=== PATIENT | female | born 1960 | race Caucasian/White ===

== ENCOUNTER 2024-01-06 16:20 | Emergency (ER) | payer OTHER, MEDICARE, SELFPAY ==
[2024-01-06 16:24] VITALS: BP 124/75
[2024-01-06 21:10] VITALS: BMI 27.3
[2024-01-06 21:24] VITALS: BP 158/73
[2024-01-06] MEDS: NSS 500 IV (21:26)
[2024-01-06 21:30] LABS: % Basophils 1.2 % (0-2); % Eosinophils 3.2 % (0-6); % Immature Granulocytes 0.2 % (0-0.5); % Lymphocytes 24.5 % (20.5-51.1); % Monocytes 14.4 % (1.7-9.3); % Neutrophils 56.5 % (42.2-75.2); Absolute Basophils 0.1 10^3/uL (0-0.2); Absolute Eosinophils 0.1 10^3/uL (0-0.7); Absolute Lymphocytes 1.1 10^3/uL (1.2-3.4); Absolute Monocytes 0.6 10^3/uL (0.1-0.6); Absolute Neutrophils 2.4 10^3/uL (1.4-6.5); Hematocrit 28.7 % (37.0-47.0); Hemoglobin 9.9 g/dL (12.0-16.0); Mean Corp Hgb Conc. 34.5 g/dL (33.0-37.0); Mean Corpuscular Hgb 31.7 pg (27.0-31.0); Mean Platelet Volume 9.1 fL (7.4-10.4); Nucleated Red Blood Cells % 0 %; Platelet Count 159 10^3/uL (130-400); Red Blood Cell Count 3.12 10^6/uL (4.20-5.40); Red Cell Dist. Width 12.5 % (11.5-14.5); White Blood Cell Count 4.3 10^3/uL (4.8-10.8)
[2024-01-06 21:41] LABS: Blood Urea Nitrogen 13 mg/dl (7-17); Calcium 10.1 mg/dl (8.4-10.2); Carbon Dioxide 23 mmol/L (22-30); Chloride 106 mmol/L (98-107); Estimated Creatinine Clearance 92 ml/min; Glucose 100 mg/dl (70-99); Potassium 3.8 mmol/L (3.5-5.1); Sodium 137 mmol/L (135-145); eGFR > 60.00
[2024-01-06 21:53] LABS: Troponin I < 0.012 ng/ml
[2024-01-06 22:00] VITALS: BP 179/77
--- NOTE | 2024-01-06 22:36 | ED.GENMED ---
History of Present Illness
General
Chief Complaint: Breathing Problem
Source: patient and family
Exam Limitations: none
Time Seen by Provider: 01/06/24 20:02
Travel History
Have you had any contact with someone who has COVID-19?: No
Do you have any symptoms of coronavirus? Fever > 100 degrees, chills, cough, shortness of breath, sore throat, loss of taste or smell, muscle aches, or headache?: No
History of Present Illness
History of Present Illness:
Patient with a trauma about 5 days ago. At that time patient had arm fracture x 2 and a facial fracture. Since shortly after the incident she has had shortness of breath and shortness of breath with exertion. No pleuritic chest pain she had no
chest trauma or abdominal trauma. She has follow-up arranged for her orthopedic and facial injuries.
Past History
Past History
ED Past Medical History: Arrthythmia, HTN and Other (MS, hypertension)
ED Past Surgical History: Cholecystectomy and Gynecological
Social History
Tobacco: Non-smoker
Review of Systems
Review of Systems
All Other Systems: Not applicable
Constitutional: Denies fever
Respiratory: Denies cough
Cardiac: Denies chest pain or syncope
Phy Exam
Physical Exam
Physical Exam:
TRAUMA EXAM:
VITAL SIGNS: Vital signs reviewed, cooperative
DISTRESS: No active disease
EYES: Pupils reactive, no orbital trauma
NOSE: No deformity or epistaxis
FACE AND SCALP: Large areas of ecchymosis to the left face in various stages of healing
NECK: Supple nontender
BACK: Back nontender, pelvis stable to compression
RESPIRATORY: No distress, breath sounds normal, no tender chest wall
CARDIAC: No murmur, pulses equal and strong
ABDOMEN: Soft nontender bowel sounds normal
SKIN: Skin intact no bleeding, color normal
EXTREMITIES: Sling in the left arm. Splint.
NEUROLOGICAL: Alert, oriented, no motor deficits
PSYCH: Mood affect normal
Scores
Heart Failure Risk
Heart Failure Risk Score: Not Applicable
Course
Orders/Labs/Results
Orders:
Orders
01/06/24 16:32
CXR2 [CR Chest - 2 Views ] Urgent
Comment:
Reason For Exam: fall on , sob started yesterday
01/06/24 20:12
Electrocardiogram (*1) Stat
Reason for Study: Other
Other Reason for Exam: chest pain
CT Chest Pe Study Urgent
Comment:
Reason For Exam: Short of breath
EKG- Treatment ONCE
IV Insert/Care/Rem.- Treatment PRN
0.9% Sodium Chloride 500 ml [Nss] 500 ml IV BOLUS
Pulse Ox/cont/shift [RESP] Stat
Quantity: 1
01/06/24 21:11
Complete Blood Count/With Diff Urgent
Comprehensive Metabolic Panel Urgent
Direct Bilirubin Urgent
Troponin I Urgent
01/06/24 23:15
Sling Left-Treatment ONCE
01/06/24 23:37
Add On- LAB Urgent
Tests Added?: lfts
Abnormal Lab Results
01/06/24
21:11
WBC 4.3 L 10^3/uL
(4.8-10.8)
RBC 3.12 L 10^6/uL
(4.20-5.40)
Hgb 9.9 L g/dL
(12.0-16.0)
Hct 28.7 L %
(37.0-47.0)
MCH 31.7 H pg
(27.0-31.0)
Absolute Lymphs (auto) 1.1 L 10^3/uL
(1.2-3.4)
Monocytes % 14.4 H %
(1.7-9.3)
Glucose 100 H mg/dl
(70-99)
Direct Bilirubin 0.5 H mg/dl
(0.0-0.4)
AST 46 H U/L
(14-36)
01/06/24 21:11
01/06/24 21:11
Vital Signs
Initial and Last Documented VS:
Initial Vital Signs
Temp Pulse Resp BP Pulse Ox
98.2 F 72 16 124/75 98
01/06/24 16:24 01/06/24 16:24 01/06/24 16:24 01/06/24 16:24 01/06/24 16:24
Last Documented Vital Signs
Temp Pulse Resp BP Pulse Ox
98.2 F 94 16 179/77 100
01/06/24 16:24 01/06/24 22:46 01/06/24 22:30 01/06/24 22:00 01/06/24 23:07
*Radiology
Radiology exam reviewed: radiology read reviewed (neg cxr)
*Pulse Oximetry
Patient hypoxic: no
*EKG
Interpreted by ED Provider?: Yes
Interpretation: abnormal
Comparison EKG: changes noted
Heart Rate: 67
Rate: normal
Rhythm: sinus
[place]: normal axis
Interval: normal interval
QRS Pattern: normal QRS
Ischemia: non-specific ST changes
*Critical Care Note
Total Time (30-74mins, 75-104mins- exclusive of procedures): Not Applicable
Data Reviewed
Review of Other/Old Records Reveals: Labs, Records and Testing
Update Note
Update Note:
Waiting for the official CT reading although I see no serious issues. Doubt a primary cardiac issue. Troponin and EKG are normal. The symptoms all started after her fall. Possibly she caused some chest wall injury that is causing this subjective
dyspnea. However she is not hypoxic she is in no respiratory distress. She does have some mild drop in hemoglobin. However she clearly had some blood loss in her arm and face to explain this. She is not describing black or tarry stools. Stable
for discharge to follow-up
ED Attending Note
-
Portions of this chart may have been created with voice recognition software.� Occasional wrong word or��sound alike� substitutions may have occurred due to the inherent limitations of voice recognition software.
Discharge Plan
Departure
Patient Disposition: Home (Routine Discharge)
Date of Disposition: 01/06/24
Time of Disposition: 23:37
Patient with high blood pressure during this ER visit?: Yes
Discharge Problem:
Dyspnea, Anemia, Recent facial/arm fracture
Instructions: Shortness of Breath (Dyspnea) (DC)
Prescriptions:
No Action
norethindrone-e.estradiol-iron [ (28)] 1 EACH tablet
1 ea PO
amlodipine 5 MG tablet
5 mg PO PRN PRN (Reason: hypertension)
hydrochlorothiazide 12.5 MG capsule
12.5 mg PO DAILY
fluoxetine 10 MG capsule
10 mg PO DAILY
dimethyl fumarate [Tecfidera] 120 MG capsule,delayed release(DR/EC)
240 mg PO BID
Referrals:
Guanakito Rodas DO [Family Provider] - Follow up in 2-3 days
Activity Restrictions/Additional Instructions:
Follow-up closely with your primary physician
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
Follow-up as directed for your arm and facial fractures
Please return sooner with increased shortness of breath, chest pain or any other concerning symptom
Interventions
Interventions:
*Risk Screen - Suicide Last Done: 01/06/24 21:10
*General Assessment Last Done: 01/06/24 21:10
*Neglect/Abuse Screening Last Done: 01/06/24 21:10
ED- Fall Risk Assessment Last Done: 01/06/24 20:15
*ED COVID-19 Vaccine History Last Done: 01/06/24 16:24
*Nursing Disposition Last Done: 01/07/24 00:00
ED- Cardiac Assessment Last Done: 01/06/24 20:15
ED- Pulmonary Assessment Last Done: 01/06/24 20:15
Discharge Date and Time
Discharge Date/Time: 01/07/24 00:00
Print Language: DIVEHI
[2024-01-07 00:15] LABS: ALT (SGPT) 26 U/L (0-35); AST (SGOT) 46 U/L (14-36); Albumin 4.6 g/dl (3.5-5.0); Alkaline Phosphatase 87 U/L (38-126); Direct Bilirubin 0.5 mg/dl (0.0-0.4); Total Bilirubin 1.2 mg/dl (0.2-1.3); Total Protein 7.5 g/dl (6.3-8.2)
== END 2024-01-07 | disposition home or self-care (01) ==
LOC: EMR 16:20
PROVIDERS: EMERGENCY PHYSICIAN Emergency Medicine; FAMILY PHYSICIAN Family Medicine
DX: R06.00 Dyspnea, unspecified (principal); S42.202A Unspecified fracture of upper end of left humerus, initial encounter for closed fracture; W19.XXXA Unspecified fall, initial encounter; D64.9 Anemia, unspecified; I10 Essential (primary) hypertension
CPT/HCPCS: 99285; 96360; 96361; 71046; 71275; 80053; 82248; 84484; 85025; 93005; Q9967

== ENCOUNTER 2024-03-13 12:53 | Emergency (ER) | payer OTHER, MEDICARE, SELFPAY ==
[2024-03-13 13:04] VITALS: BP 153/82
--- NOTE | 2024-03-13 13:34 | ED.GENMED ---
History of Present Illness
General
Chief Complaint: Breathing Problem
Source: patient
Exam Limitations: none
Time Seen by Provider: 03/13/24 13:29
Nursing documentation reviewed up to this point in time: agreed with
History of Present Illness
History of Present Illness:
63-year-old female presents emergency department due to chest pain on the left side of her chest. She has had this pain since falling. She also felt her heart racing. Shortness of breath that started yesterday.
Past History
Past History
ED Past Medical History: Arrthythmia, HTN and Other (MS, hypertension)
ED Past Surgical History: Cholecystectomy and Gynecological
Social History
Tobacco: Non-smoker
Review of Systems
Review of Systems
Allergies reviewed?: Yes
All Other Systems: Not applicable
Constitutional: Reports no symptoms
EENT: Reports no symptoms
Respiratory: Reports trouble breathing
Cardiac: Reports chest pain
ABD/GI: Reports no symptoms
: Reports no symptoms
Musculoskeletal: Reports no symptoms
Skin: Reports no symptoms
Endocrine: Reports no symptoms
Hematologic/Lymphatic: Reports no symptoms
Psychiatric: Reports no symptoms
Phy Exam
Physical Exam
Physical Exam:
Physical Exam
General: no apparent distress, not acutely ill
Neck: supple. no meningeal signs. normal posterior pharynx
Heart: s1/s2 regular rate and rhythm, no murmur. equal radial
pulses.
HEENT: Pupils equal round reactive to light, EOMI
Lungs: no acute respiratory distress. clear bilaterally, chest wall tender to palpation
Abdomen: normal bowel sounds. not tender. no CVAT
Neuro: alert and oriented. no focal neurological deficits cranial nerves II through XII intact
Skin: no rash
Psychiatric: well kept. interactive and cooperative
Extremities: no edema. no calf tenderness. negative homans. good distal pulses
Scores
Heart Failure Risk
Heart Failure Risk Score: Not Applicable
Heart Score for Chest Pain Patients
STEMI patient?: No
History: Slightly or Non-Suspicious
ECG: Normal
Age: >45 - <65 years
Risk Factors: 1 or 2 Risk Factors
Troponin: </= Normal Limit
Heart Score for Chest Pain Patients: 2
Heart Score Risk: 2.5% MACE over next 6 weeks
Course
Orders/Labs/Results
Orders:
Orders
03/13/24 12:55
ECG [Electrocardiogram (*1)] Urgent
Reason for Study: Palpitations
EKG- Treatment ONCE
03/13/24 13:29
CR Chest - 2 Views Urgent
Comment:
Reason For Exam: respiratory distress
03/13/24 14:11
Complete Blood Count/With Diff Urgent
Comprehensive Metabolic Panel Urgent
NT-proBNP Urgent
Troponin I Urgent
03/13/24 15:38
D-Dimer Urgent
03/13/24 15:50
Ketorolac [Toradol] 15 mg IV NOW STA
Abnormal Lab Results
03/13/24
14:11
Monocytes % 10.0 H %
(1.7-9.3)
BUN 20 H mg/dl
(7-17)
03/13/24 14:11
03/13/24 14:11
Vital Signs
Initial and Last Documented VS:
Initial Vital Signs
Temp Pulse Resp BP Pulse Ox
98.0 F 63 16 153/82 98
03/13/24 13:04 03/13/24 13:04 03/13/24 13:04 03/13/24 13:04 03/13/24 13:04
Last Documented Vital Signs
Temp Pulse Resp BP Pulse Ox
98.0 F 58 13 177/88 99
03/13/24 13:04 03/13/24 16:00 03/13/24 16:00 03/13/24 16:00 03/13/24 16:00
MDM/Problems Addressed
Differential Diagnosis Includes:
Chest wall pain, CHF, PE
MDM/Problems Addressed:
63-year-old female with chest wall pain, likely from recent fall. No signs of PE, pneumonia, pneumothorax, ACS. Patient stable for discharge.
Chronic conditions affecting care: Neurological disorder (Multiple sclerosis)
Acute Exacerbation and/or Progression of Chronic Illness: Neurological disorder (Multiple sclerosis)
*Radiology
Radiology exam reviewed: radiology read reviewed (Chest x-ray no acute findings)
*Pulse Oximetry
Patient hypoxic: no
*EKG
Interpreted by ED Provider?: Yes
EKG Intrepretation Date: 03/13/24
EKG Intrepretation Time: 12:59
Interpretation: normal
Comparison EKG: no comparison EKG present
Heart Rate: 64
Rate: normal
Rhythm: sinus
[place]: normal axis
Interval: normal interval
QRS Pattern: normal QRS
Ischemia: no ischemia
*Damage Prevention Coordinator Interpretation
Rate: normal
Interpretation: normal
Heart Rate: 60
Rhythm: sinus
*Critical Care Note
Total Time (30-74mins, 75-104mins- exclusive of procedures): Not Applicable
Data Reviewed
Further Testing Considered But Not Given:
CT chest not indicated
Patient Management
Social determinants of health affecting care: Living situation
Escalation/DeEscalation of care consider admission/obs:
Admit not indicated
ED Attending Note
-
Portions of this chart may have been created with voice recognition software.� Occasional wrong word or��sound alike� substitutions may have occurred due to the inherent limitations of voice recognition software.
Discharge Plan
Departure
Patient Disposition: Home (Routine Discharge)
Date of Disposition: 03/13/24
Time of Disposition: 16:33
Patient with high blood pressure during this ER visit?: Yes
Condition: Good
Discharge Problem:
Acute chest wall pain
Instructions: Chest pain
Prescriptions:
No Action
norethindrone-e.estradiol-iron [ (28)] 1 EACH tablet
1 ea PO
amlodipine 5 MG tablet
5 mg PO PRN PRN (Reason: hypertension)
hydrochlorothiazide 12.5 MG capsule
12.5 mg PO DAILY
fluoxetine 10 MG capsule
10 mg PO DAILY
dimethyl fumarate [Tecfidera] 120 MG capsule,delayed release(DR/EC)
240 mg PO BID
Referrals:
Guanakito Rodas DO [Family Provider] -
Interventions
Interventions:
*Risk Screen - Suicide Last Done: 03/13/24 13:54
*General Assessment Last Done: 03/13/24 13:54
*Neglect/Abuse Screening Last Done: 03/13/24 13:54
ED- Fall Risk Assessment Last Done: 03/13/24 13:54
*ED COVID-19 Vaccine History Last Done: 03/13/24 13:54
ED- Cardiac Assessment Last Done: 03/13/24 13:54
ED- Pulmonary Assessment Last Done: 03/13/24 13:54
Discharge Date and Time
Print Language: LITHUANIAN
[2024-03-13 13:54] VITALS: BMI 25.4
[2024-03-13 13:56] VITALS: BP 143/87
[2024-03-13 14:00] VITALS: BP 152/73
[2024-03-13 14:26] LABS: % Basophils 0.7 % (0-2); % Immature Granulocytes 0.2 % (0-0.5); % Lymphocytes 34.7 % (20.5-51.1); % Neutrophils 52.4 % (42.2-75.2); Absolute Eosinophils 0.1 10^3/uL (0-0.7); Absolute Lymphocytes 1.9 10^3/uL (1.2-3.4); Absolute Monocytes 0.5 10^3/uL (0.1-0.6); Absolute Neutrophils 2.8 10^3/uL (1.4-6.5); Hematocrit 37.3 % (37.0-47.0); Hemoglobin 12.7 g/dL (12.0-16.0); Mean Corpuscular Hgb 30.1 pg (27.0-31.0); Mean Corpuscular Volume 88.4 fL (81.0-99.0); Mean Platelet Volume 9.2 fL (7.4-10.4); Nucleated Red Blood Cells % 0 %; Platelet Count 152 10^3/uL (130-400); Red Blood Cell Count 4.22 10^6/uL (4.20-5.40); Red Cell Dist. Width 12.5 % (11.5-14.5); White Blood Cell Count 5.4 10^3/uL (4.8-10.8)
[2024-03-13 14:49] LABS: ALT (SGPT) 14 U/L (0-35); AST (SGOT) 26 U/L (14-36); Albumin 4.8 g/dl (3.5-5.0); Alkaline Phosphatase 96 U/L (38-126); Blood Urea Nitrogen 20 mg/dl (7-17); Calcium 10.1 mg/dl (8.4-10.2); Carbon Dioxide 27 mmol/L (22-30); Chloride 104 mmol/L (98-107); Estimated Creatinine Clearance 85 ml/min; Glucose 88 mg/dl (70-99); NT-proBNP 230 pg/ml; Potassium 4.1 mmol/L (3.5-5.1); Sodium 140 mmol/L (135-145); Total Bilirubin 0.6 mg/dl (0.2-1.3); Total Protein 7.3 g/dl (6.3-8.2); Troponin I < 0.012 ng/ml; eGFR > 60.00
[2024-03-13 15:44] VITALS: BP 167/92
[2024-03-13] MEDS: TORADOL 15 MG IV (15:57)
[2024-03-13 16:00] VITALS: BP 177/88
[2024-03-13 16:11] LABS: D-Dimer 0.46 ug/mlFEU (0.00-0.50)
== END 2024-03-13 17:51 | disposition home or self-care (01) ==
LOC: EMR 12:53
PROVIDERS: EMERGENCY PHYSICIAN Emergency Medicine; FAMILY PHYSICIAN Family Medicine
DX: R07.89 Other chest pain (principal); R06.02 Shortness of breath; R00.2 Palpitations; I10 Essential (primary) hypertension; G35 Multiple sclerosis; Z90.49 Acquired absence of other specified parts of digestive tract
CPT/HCPCS: 99283; 96374; 71046; 80053; 83880; 84484; 85025; 85379; 93005

== ENCOUNTER 2024-12-10 16:35 | Emergency (ER) | payer OTHER, SELFPAY ==
[2024-12-10 16:43] VITALS: BP 172/87
[2024-12-10 17:10] LABS: % Basophils 1.1 % (0-2); % Eosinophils 2.7 % (0-6); % Immature Granulocytes 0.2 % (0-0.5); % Lymphocytes 42.9 % (20.5-51.1); % Monocytes 8.7 % (1.7-9.3); % Neutrophils 44.4 % (42.2-75.2); Absolute Basophils 0.1 10^3/uL (0-0.2); Absolute Eosinophils 0.2 10^3/uL (0-0.7); Absolute Lymphocytes 2.4 10^3/uL (1.2-3.4); Absolute Monocytes 0.5 10^3/uL (0.1-0.6); Absolute Neutrophils 2.5 10^3/uL (1.4-6.5); Hematocrit 39.9 % (37.0-47.0); Hemoglobin 13.5 g/dL (12.0-16.0); Mean Corp Hgb Conc. 33.8 g/dL (33.0-37.0); Mean Corpuscular Hgb 31.5 pg (27.0-31.0); Mean Platelet Volume 9.4 fL (7.4-10.4); Nucleated Red Blood Cells % 0 %; Platelet Count 169 10^3/uL (130-400); Red Blood Cell Count 4.29 10^6/uL (4.20-5.40); Red Cell Dist. Width 12.7 % (11.5-14.5); White Blood Cell Count 5.5 10^3/uL (4.8-10.8)
[2024-12-10 17:24] LABS: ALT (SGPT) 16 U/L (0-35); AST (SGOT) 28 U/L (14-36); Alkaline Phosphatase 111 U/L (38-126); Blood Urea Nitrogen 16 mg/dl (7-17); Calcium 9.6 mg/dl (8.4-10.2); Carbon Dioxide 29 mmol/L (22-30); Chloride 105 mmol/L (98-107); Glucose 98 mg/dl (70-99); Sodium 143 mmol/L (135-145); Total Bilirubin 0.7 mg/dl (0.2-1.3); Total Protein 7.7 g/dl (6.3-8.2); eGFR > 60.00
[2024-12-10 18:30] VITALS: BP 141/84
[2024-12-10 18:32] VITALS: BP 141/84
[2024-12-10 19:00] VITALS: BP 162/86; BMI 25.6
--- NOTE | 2024-12-10 19:07 | ED.GENMED ---
History of Present Illness
General
Chief Complaint: Heart Rate Problem
Source: patient
Exam Limitations: none
Time Seen by Provider: 12/10/24 18:42
Nursing documentation reviewed up to this point in time: agreed with
History of Present Illness
History of Present Illness:
64-year-old female with a past medical history as noted presents to the ER for evaluation of palpitations and mild shortness of breath. Patient reports symptoms have been ongoing for the past week. She says she feels palpitations are becoming a
bit more frequent which prompted ER visit. She denies any cough. She denies any chest pain. She denies any syncope. She denies any other complaints. She says she has a distant history of SVT.
Past History
Past History
ED Past Medical History: Arrthythmia, HTN and Other (MS, hypertension)
ED Past Surgical History: Cholecystectomy and Gynecological
Social History
Tobacco: Non-smoker
Review of Systems
Review of Systems
All Other Systems: ROS reviewed and negative except as documented in HPI and ROS
Constitutional: Denies fever
Respiratory: Reports trouble breathing; Denies cough
Cardiac: Reports palpitations; Denies chest pain or syncope
ABD/GI: Denies abdominal pain, nausea or vomiting
: Denies flank pain
Musculoskeletal: Denies neck pain or back pain
Neurological: Denies headache
Phy Exam
Physical Exam
Physical Exam:
General: Awake, alert, oriented x3; no acute distress
Head: Normocephalic, atraumatic
Eyes: Conjunctiva normal
Throat: Airway intact, handling secretions
Neck: Trachea midline, supple without meningismus
Lungs: Clear to auscultation bilaterally, no wheezing, rales, rhonchi
Heart: Regular rate and rhythm, no murmurs, gallops, or rubs
Abd: Soft, non distended, nontender
Neuro: No gross deficits
Extremities: No edema in extremities, warm and well-perfused
Scores
Heart Failure Risk
Heart Failure Risk Score: Not Applicable
Heart Score for Chest Pain Patients
STEMI patient?: Not applicable
Withdrawal Assessment of Alcohol
Withdrawal Assessment Completed?: Not applicable
Course
Orders/Labs/Results
Orders:
Orders
12/10/24 16:36
EKG [Electrocardiogram (*1)] Urgent
Reason for Study: Palpitations
EKG- Treatment ONCE
12/10/24 17:01
Complete Blood Count/With Diff Urgent
Comprehensive Metabolic Panel Urgent
12/10/24 18:41
NT-proBNP Urgent
Comment: ADD ON
Troponin I Urgent
12/10/24 18:43
CR Chest - 2 Views Urgent
Comment:
Reason For Exam: sob
12/10/24 19:07
D-Dimer Urgent
12/10/24 19:10
Add On- LAB Urgent
Tests Added?: pro BNP
Abnormal Lab Results
12/10/24
17:01
MCH 31.5 H pg
(27.0-31.0)
12/10/24 17:01
12/10/24 17:01
Vital Signs
Initial and Last Documented VS:
Initial Vital Signs
Temp Pulse Resp BP Pulse Ox
36.7 C 61 16 172/87 98
12/10/24 16:43 12/10/24 16:43 12/10/24 16:43 12/10/24 16:43 12/10/24 16:43
Last Documented Vital Signs
Temp Pulse Resp BP Pulse Ox
36.7 C 54 16 141/84 98
12/10/24 16:43 12/10/24 18:45 12/10/24 18:45 12/10/24 18:32 12/10/24 18:45
MDM/Problems Addressed
Differential Diagnosis Includes:
Palpitations: PVCs, A-fib, SVT, anxiety
Shortness of breath: Pneumonia, CHF, ACS, PE, anemia, anxiety
MDM/Problems Addressed:
64-year-old female presents for evaluation of palpitations over the past week associated with some mild increased shortness of breath. Vitals and exam as above. EKG shows sinus rhythm with PVCs. Plan to place an IV check labs including a CBC and
a CMP. Check troponin, proBNP. Check D-dimer. Check chest x-ray. Monitor closely reassess after the above.
Labs reviewed: CBC and CMP unremarkable. Troponin, BNP, D-dimer pending. Chest x-ray pending. Continue to monitor.
Troponin undetectable, proBNP marginal. D-dimer negative. Low suspicion for emergent pathology; suspect palpitations are related to PVCs. Stable for discharge. Follow-up with your primary care physician. Patient comfortable with this plan. All
questions answered.
*Radiology
Radiology exam reviewed: preliminary read by ED provider
*Pulse Oximetry
Patient hypoxic: no
*EKG
Interpreted by ED Provider?: Yes
Heart Rate: 62
Rate: normal
Rhythm: sinus and PVC's
[place]: normal axis
Interval: normal interval
QRS Pattern: normal QRS
Ischemia: no ischemia
*Critical Care Note
Total Time (30-74mins, 75-104mins- exclusive of procedures): Not Applicable
Data Reviewed
Review of Other/Old Records Reveals: Labs and Records
Source: patient and spouse
ED Attending Note
-
Portions of this chart may have been created with voice recognition software.� Occasional wrong word or��sound alike� substitutions may have occurred due to the inherent limitations of voice recognition software.
Discharge Plan
Departure
Patient Disposition: Home (Routine Discharge)
Date of Disposition: 12/10/24
Time of Disposition: 19:58
Patient with high blood pressure during this ER visit?: Yes
Discharge Problem:
Palpitations, Dyspnea, PVC (premature ventricular contraction)
Instructions: Palpitations (DC)
Prescriptions:
No Action
norethindrone-e.estradiol-iron [ (28)] 1 EACH tablet
1 ea PO
amlodipine 5 MG tablet
5 mg PO PRN PRN (Reason: hypertension)
hydrochlorothiazide 12.5 MG capsule
12.5 mg PO DAILY
fluoxetine 10 MG capsule
10 mg PO DAILY
dimethyl fumarate [Tecfidera] 120 MG capsule,delayed release(DR/EC)
240 mg PO BID
Referrals:
Guanakito Rodas DO [Family Provider] - Follow up in 5-7 days
Activity Restrictions/Additional Instructions:
Thank you for visiting the Emergency Department at [facility].
1. Please schedule a follow up appointment as directed. Call first thing tomorrow morning to make an appointment.
2. If indicated, please take your medications as instructed and indicated on discharge paperwork.
3. If any of your symptoms do not improve, or persist, or become more severe within 6-12 hours, please return to the emergency department for further care.
4. Please return to the emergency department if you develop a headache, neck pain/stiffness, fever greater than 100.4F, chest pain, shortness of breath, persistent nausea, vomiting, slurred speech, difficulty walking, numbness/tingling, weakness,
signs of infection or any other symptoms that are worrisome to you.
Please call [phone] if you have any questions.
Interventions
Interventions:
*Risk Screen - Suicide Last Done: 12/10/24 16:43
*General Assessment Last Done: 12/10/24 18:32
*Neglect/Abuse Screening Last Done: 12/10/24 16:43
*ED- Fall Risk Assessment Last Done: 12/10/24 18:32
*ED COVID-19 Vaccine History Last Done: 12/10/24 18:32
ED- Cardiac Assessment Last Done: 12/10/24 18:32
ED- Pulmonary Assessment Last Done: 12/10/24 18:32
Discharge Date and Time
Print Language: [id number]
[2024-12-10 19:15] LABS: Troponin I < 0.012 ng/ml
[2024-12-10 19:31] LABS: NT-proBNP 425 pg/ml
[2024-12-10 19:54] LABS: D-Dimer 0.28 ug/mlFEU (0.00-0.50)
[2024-12-10 20:00] VITALS: BP 141/77
== END 2024-12-10 20:12 | disposition home or self-care (01) ==
LOC: EMR 16:35
PROVIDERS: Emergency Medicine; EMERGENCY PHYSICIAN Emergency Medicine; FAMILY PHYSICIAN Family Medicine
DX: R06.00 Dyspnea, unspecified (principal); R00.2 Palpitations; I49.3 Ventricular premature depolarization; I10 Essential (primary) hypertension; G35 Multiple sclerosis; Z86.79 Personal history of other diseases of the circulatory system; Z90.49 Acquired absence of other specified parts of digestive tract
CPT/HCPCS: 99283; 71046; 80053; 83880; 84484; 85025; 85379; 93005

== ENCOUNTER → 2025-04-13 08:57 | Outpatient (REF) | payer OTHER, SELFPAY | LOC: RCS 08:57 | PROVIDERS: ATTENDING PHYSICIAN Internal Medicine Cardiovascular Disease; FAMILY PHYSICIAN Family Medicine | DX: I10 Essential (primary) hypertension (principal); I47.10 Supraventricular tachycardia, unspecified; I49.3 Ventricular premature depolarization; R00.2 Palpitations | CPT/HCPCS: 93225; 93226; 93306 ==

== ENCOUNTER → 2025-05-04 12:38 | Outpatient (REF) | payer OTHER, SELFPAY | LOC: HWRCS 12:38 | PROVIDERS: ATTENDING PHYSICIAN Internal Medicine Cardiovascular Disease; FAMILY PHYSICIAN Family Medicine | DX: I47.29 Other ventricular tachycardia (principal); I10 Essential (primary) hypertension; E78.00 Pure hypercholesterolemia, unspecified; G35 Multiple sclerosis; R00.2 Palpitations | CPT/HCPCS: 78452; 93017; A9500; J2785 ==